=== PATIENT | female | born 1965 | race Caucasian/White ===

== ENCOUNTER 2021-04-29 09:27 | Emergency (ER) | payer OTHER ==
[2021-04-29] MEDS ORDERED: Ketorolac 30 MG/ML SDV IM ONE (09:55)
[2021-04-29] MEDS ORDERED: Ondansetron 4 MG Tab.DIS PO ONE ×2 (09:56→11:33)
--- NOTE | 2021-04-29 10:06 | EDM.PDOC ---
ED HPI GENERAL MEDICAL PROBLEM - General Chief Complaint: Back Pain or Injury Stated Complaint: LEFT SIDE ABDOMINAL PAIN Time Seen by Provider: 04/29/21 09:45 Source of Information: Reports: Patient, RN. Denies: Old Records History Limitations: Reports: No Limitations - History of Present Illness INITIAL COMMENTS - FREE TEXT/NARRATIVE: 55 yo female here with L sided abdominal pain that began when she awoke today about 8 am. Has associated nausea without vomiting. No fever. Had a few BM's already today without relief. Pain is constant. Has had a prior appy and C- sections. No urinary sx's. [place] Onset: Today Onset Date: 04/29/21 Onset Time: 08:00 Duration: Hour(s): (2), Constant Location: Reports: Abdomen (L sided) Quality: Reports: Ache Severity: Moderate Improves with: Reports: Rest Worsens with: Reports: Movement Context: Reports: Other (See HPI) Associated Symptoms: Reports: Nausea/Vomiting (no vomiting). 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: Other (see below) (none) Left Flank Pain Score (Numeric/FACES): 9 - Related Data Allergies Allergy/AdvReac Type Severity Reaction Status Date / Time No Known Allergies Allergy Verified 04/29/21 09:47 Home Meds: Home Meds Acetaminophen/oxyCODONE [Percocet 325-5 MG] 1 - 2 each PO Q6H PRN #10 tab 04/29/21 [Rx] Ondansetron [Zofran ODT] 4 mg PO Q6H PRN #8 tab.dis 04/29/21 [Rx] Past Medical History TROUBLE LOCATER History: Reports: Musculoskeletal History: Reports: Fracture - Past Surgical History HEENT Surgical History: Reports: Naso-Sinus Surgery GI Surgical History: Reports: Appendectomy Female Surgical History: Reports: Section Social & Family History - Tobacco Use Tobacco Use Status *Q: Never Tobacco User - Caffeine Use Caffeine Use: Reports: Coffee - Alcohol Use Days Per Week of Alcohol Use: 2 Number of Drinks Per Day: 3 Total Drinks Per Week: 6 - Recreational Drug Use Recreational Drug Use: No ED ROS GENERAL - Review of Systems Review Of Systems: See Below Constitutional: Reports: No Symptoms HEENT: Reports: No Symptoms Respiratory: Reports: No Symptoms Cardiovascular: Reports: No Symptoms GI/Abdominal: Reports: Abdominal Pain, Nausea. Denies: Black Stool, Bloody Stool, Constipation, Diarrhea, Distension, Hematemesis, Hematochezia, Melena, Vomiting : Reports: No Symptoms Musculoskeletal: Reports: No Symptoms Skin: Reports: No Symptoms Neurological: Reports: No Symptoms ED EXAM, GI/ABD - Physical Exam Exam: See Below Exam Limited By: No Limitations General Appearance: Alert, WD/WN, Mild Distress Eyes: Bilateral: Normal Appearance Ears: Normal External Exam, Normal Canal, Hearing Grossly Normal, Normal TMs Nose: Normal Inspection, No Blood Throat/Mouth: Normal Inspection, Normal Lips, Normal Oropharynx, Normal Voice, No Airway Compromise Head: Atraumatic, Normocephalic Neck: Normal Inspection, Non-Tender Respiratory/Chest: No Respiratory Distress, Lungs Clear, Normal Breath Sounds, No Accessory Muscle Use Cardiovascular: Regular Rate, Rhythm, No Edema GI/Abdominal Exam: Normal Bowel Sounds, Soft, No Distention, Tender (L sided abdominal tenderness). No: Non-Tender, Distended, Guarding, Rigid, Hernia Back Exam: Normal Inspection. No: CVA Tenderness (R), CVA Tenderness (L) Extremities: Normal Inspection, Normal Range of Motion, Non-Tender, No Pedal Edema Neurological: Alert, Oriented, CN II-XII Intact, Normal Cognition, No Motor/Sensory Deficits Psychiatric: Normal Affect, Normal Mood Skin Exam: Warm, Dry, Intact, Normal Color, No Rash Course - Vital Signs Last Recorded V/S: Last Vital Signs Temp 36.4 C 04/29/21 09:46 Pulse 49 L 04/29/21 09:46 Resp 16 04/29/21 09:46 BP 139/64 04/29/21 09:46 Pulse Ox 100 04/29/21 09:46 - Orders/Labs/Meds Orders: Active Orders 24 hr Category Date Time Status Abdomen Pelvis wo Cont [CT] Stat Exams 04/29/21 10:54 Taken Sodium Chloride 0.9% [Saline Flush] Med 04/29/21 10:29 Active 10 ml FLUSH ASDIRECTED PRN Medication Orders Sodium Chloride (Sodium Chloride 0.9% 10 Ml Syringe) 10 ml FLUSH ASDIRECTED PRN PRN Reason: Keep Vein Open Labs: Laboratory Tests 04/29/21 04/29/21 04/29/21 Range/Units 09:55 10:05 10:05 WBC 7.9 (4.5-11.0) K/uL RBC 4.38 (3.30-5.50) M/uL Hgb 11.1 L (12.0-15.0) g/dL Hct 35.8 L (36.0-48.0) % MCV 82 (80-98) fL MCH 25 L (27-31) pg MCHC 31 L (32-36) % Plt Count 334 (150-400) K/uL Sodium 141 (140-148) mmol/L Potassium 3.9 (3.6-5.2) mmol/L Chloride 104 (100-108) mmol/L Carbon Dioxide 28 (21-32) mmol/L Anion Gap 9.4 (5.0-14.0) mmol/L BUN 15 (7-18) mg/dL Creatinine 0.9 (0.6-1.0) mg/dL Est Cr Clr Drug Dosing 51.92 mL/min Estimated GFR (MDRD) > 60 (>60) Glucose 111 H (74-106) mg/dL Calcium 8.5 (8.5-10.1) mg/dL C-Reactive Protein < 0.05 (0.0-0.3) mg/dL Urine Color Yellow (YELLOW) Urine Appearance Clear (CLEAR) Urine pH 6.5 (5.0-8.0) Ur Specific [place] >= 1.030 (1.008-1.030) Urine Protein Negative (NEGATIVE) mg/dL Urine Glucose (UA) Negative (NEGATIVE) mg/dL Urine Ketones Negative (NEGATIVE) mg/dL Urine Occult Blood Trace-intact H (NEGATIVE) Urine Nitrite Negative (NEGATIVE) Urine Bilirubin Negative (NEGATIVE) Urine Urobilinogen 0.2 (0.2-1.0) EU/dL Ur Leukocyte Esterase Negative (NEGATIVE) Urine RBC 0-5 (0-5) Urine WBC Not seen (0-5) Ur Epithelial Cells Rare Amorphous Sediment Few Urine Bacteria Occasional Urine Mucus Not seen Meds: Medications Generic Name Dose Route Start Last Admin Trade Name Freq PRN Reason Stop Dose Admin Sodium Chloride 10 ml 04/29/21 10:29 Sodium Chloride 0.9% 10 Ml Syringe FLUSH ASDIRECTED PRN Keep Vein Open Discontinued Medications Generic Name Dose Route Start Last Admin Trade Name Freq PRN Reason Stop Dose Admin Ketorolac Tromethamine 60 mg 04/29/21 09:55 04/29/21 10:06 Ketorolac 30 Mg/Ml Sdv IM 04/29/21 09:56 60 mg ONETIME ONE Administration Ondansetron HCl 4 mg 04/29/21 09:56 04/29/21 10:05 Ondansetron 4 Mg Tab.Dis PO 04/29/21 09:57 4 mg ONETIME ONE Administration Ondansetron HCl 4 mg 04/29/21 11:33 Ondansetron 4 Mg Tab.Dis PO 04/29/21 11:34 ONETIME ONE Oxycodone/Acetaminophen 1 tab 04/29/21 11:33 Acetaminophen/Oxycodone 325-5 Mg Tab PO 04/29/21 11:34 ONETIME STA Tamsulosin HCl 0.4 mg 04/29/21 12:04 Tamsulosin 0.4 Mg Cap.Er PO 04/29/21 12:05 ONETIME ONE - Radiology Interpretation Free Text/Narrative:: CT abd/pelvis without contrast- CT Results Date: 04/29/21 Departure - Departure Time of Disposition: 12:15 Disposition: Home, Self-Care 01 Condition: Fair Clinical Impression: Kidney stone - Discharge Information *PRESCRIPTION DRUG MONITORING PROGRAM REVIEWED*: Yes *COPY OF PRESCRIPTION DRUG MONITORING REPORT IN PATIENT RADHA: Yes Prescriptions: Acetaminophen/oxyCODONE [Percocet 325-5 MG] 1 - 2 each PO Q6H PRN #10 tab PRN Reason: Pain Ondansetron [Zofran ODT] 4 mg PO Q6H PRN #8 tab.dis PRN Reason: Nausea Referrals: PCP,None [Primary Care Provider] - Forms: ED Department Discharge Additional Instructions: Strain your urine and save any sediment for possible testing by your provider. Drink ample fluids. Take ibuprofen 600 mg every 6 hrs with food for pain relief, next dose after 5 pm today. Use either acetaminophen OR Percocet for added pain relief. Use Zofran for nausea control([facility]). Return for fever or lack of adequate pain control. Sepsis Event Note (ED) - Evaluation Sepsis Screening Result: No Definite Risk - Focused Exam Vital Signs: Vital Signs Temp Pulse Resp BP Pulse Ox 04/29/21 09:46 36.4 C 49 L 16 139/64 100 04/29/21 09:41 36.4 C 49 L 139/64 100 - My Orders Last 24 Hours: My Active Orders 04/29/21 10:29 Sodium Chloride 0.9% [Saline Flush] 10 ml FLUSH ASDIRECTED PRN 04/29/21 10:54 Abdomen Pelvis wo Cont [CT] Stat - Assessment/Plan Last 24 Hours: My Active Orders 04/29/21 10:29 Sodium Chloride 0.9% [Saline Flush] 10 ml FLUSH ASDIRECTED PRN 04/29/21 10:54 Abdomen Pelvis wo Cont [CT] Stat
[2021-04-29] MEDS ORDERED: Sodium Chloride 0.9% 10 ML Syringe FLUSH PRN (10:29)
[2021-04-29] MEDS ORDERED: Acetaminophen/oxyCODONE 325-5 MG Tab PO STA (11:33)
[2021-04-29] MEDS ORDERED: Tamsulosin 0.4 MG Cap.ER PO ONE (12:04)
--- NOTE | 2021-04-29 12:12 | CT ---
Abdomen Pelvis wo Cont CLINICAL HISTORY: Left-sided pain COMPARISON: None. TECHNIQUE: Axial tomographic images are obtained from the dome of the diaphragm to the pubic symphysis without IV contrast enhancement. No oral contrast was used. The dosage reduction and iterative reconstruction techniques employed. FINDINGS: The lung bases are clear. The liver shows no mass or biliary dilatation. The gallbladder may have some biliary sludge in the dependent portion. The spleen has a normal size and shape. The pancreas is free of mass or inflammatory change. The adrenal glands appear normal bilaterally. The left kidney is hydronephrotic. There is fullness of the right ureter along its length to the UVJ where there is a 4 mm stone in the interstitial portion of the left ureter. There is some localized swelling of the urothelium. Right kidney has a normal appearance. The aorta has a normal course and contour. There is no suspicious retroperitoneal adenopathy. The uterus has a normal contour. No adnexal masses are seen. There is no free fluid. The small intestinal gas pattern is nonacute. The appendix has been removed. IMPRESSION: Left-sided hydronephrosis and hydroureter due to a at least partially obstructing 4 mm left UVJ calculus
== END 2021-04-29 12:29 | disposition home or self-care (01) ==
LOC: JP.ED 09:27
DX: N13.2 Hydronephrosis with renal and ureteral calculous obstruction (principal)
CPT/HCPCS: 36415; 74176; 80048; 81001; 85027; 86140; 96372; 99284; A9270; J1885